=== PATIENT | female | born 1950 | race Caucasian/White ===

== ENCOUNTER 2018-04-26 15:27 | Observation (INO) ==
[2018-04-26] MEDS ORDERED: Insulin Regular, Human 100 UNIT/ML SQ ONE (15:30)
--- NOTE | 2018-04-26 15:32 | Emergency Department Note ---
Disposition Clinical Impression: Hyperglycemia Urinary tract infection Qualifiers: Urinary tract infection type: acute cystitis Hematuria presence: without hematuria Qualified Code(s): N30.00 - Acute cystitis without hematuria Disposition: Admitted As Inpatient Condition: Fair Time of Disposition: 16:31 General Adult HPI - General Chief complaint: ED Urogenital-Female Stated complaint: frequent urinations, not acting normal Time Seen by Provider: 04/26/18 15:29 Source: patient, family, EMS Mode of arrival: EMS Limitations: physical limitation Nursing Notes Reviewed: Yes Vital Signs Reviewed: Yes - History of Present Illness HPI Narrative: Patient presents by EMS with a history of dementia, elevated blood sugar and some increased urination. Family indicated she might be a little more confused than usual. She arrived with normal vital signs, IV established and had received a small fluid bolus. She indicates that she feels well and denies any physical complaints. She denies headache, visual changes, nausea or vomiting. She is chest pain, shortness of breath, cough. She is not having fevers, chills , weakness or dizziness. She denies abdominal pain, diarrhea or any urinary frequency, dysuria or urgency. Family was not present on her first arrival. Onset (ago): unknown Pain Scale: 0 Associated symptoms: Reports: confusion, loss of appetite. Denies: chest pain, cough, diaphoresis, fever/chills, headaches, malaise, nausea/vomiting, rash, seizure, shortness of breath, syncope, weakness Treatments Prior to Arrival: none - Related Data Home Medications Medication Instructions Recorded Confirmed Metformin [Glucophage] 1,000 mg PO BIDWM 04/05/15 04/26/18 Atorvastatin [Lipitor] 40 mg PO HS 11/10/16 04/26/18 Duloxetine HCl [Cymbalta] 60 mg PO DAILY 11/10/16 04/26/18 Memantine [Namenda] 10 mg PO HS 11/10/16 04/26/18 risperiDONE [Risperdal] 1 mg PO DAILY 11/10/16 04/26/18 Divalproex (12 HR) [Depakote (12 0 mg PO QID 03/23/18 04/26/18 HR)] Rivastigmine Patch [Exelon] 9.6 mg TD DAILY 03/23/18 04/26/18 Hydroxyurea [Hydrea] 500 mg PO DAILY 04/26/18 04/26/18 Magnesium Oxide [Magnesium] 400 mg PO BID 04/26/18 04/26/18 raNITIdine HCl [Zantac] 150 mg PO DAILY 04/26/18 04/26/18 Previous Rx's Medication Instructions Recorded Prochlorperazine Maleate 10 mg PO Q8HR PRN #90 tablet 01/26/18 [Compazine] Allergies Allergy/AdvReac Type Severity Reaction Status Date / Time Iodinated Contrast- Oral and Allergy Difficulty Verified 04/26/18 15:28 IV Dye Breathing [Iodinated Contrast Media - IV Dye] Penicillins Allergy See Verified 04/26/18 15:28 Comments aspirin [ASA] AdvReac Intermediate See Verified 04/26/18 15:28 Comments All systems ED: reviewed and negative except as stated. Past Medical History - Past Medical History Attestation: Yes The following information was validated with the patient. 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 Absent: scleral icterus, conjunctival injection - ENT ENT exam: normal exam, normal oropharynx, mucous membranes moist - Neck Neck exam: Present: normal inspection, full ROM, trachea midline. Absent: meningismus, lymphadenopathy - Chest Chest inspection: Present: normal inspection, symmetric chest wall rise - Respiratory Respiratory exam: Present: normal lung sounds bilaterally. Absent: respiratory distress, wheezes, prolonged expiratory phase - Cardiovascular Cardiovascular exam: Present: regular rate, normal rhythm, normal heart sounds. Absent: tachycardia - Abdominal Exam Abdominal exam: Present: soft, normal bowel sounds. Absent: distention, guarding, rebound, rigidity, Ruiz's sign, tenderness at McBurney's Point, pulsatile mass, hernia Abdominal tenderness: Present: LLQ, suprapubic, mild - Extremities Exam Extremities exam: Present: normal inspection, full ROM, normal capillary refill. Absent: tenderness, pedal edema - Expanded Lower Extremity Exam Neurovascular/Tendon exam: Present: normal capillary refill. Absent: motor deficit, sensory deficit, tendon deficit Gait: not tested/not observed - Neurological Exam Neurological exam: Present: alert. Absent: oriented X3, motor sensory deficit - Psychiatric Psychiatric exam: Present: normal affect, normal mood. Absent: agitated, anxious - Skin Skin exam: Present: warm, dry, intact, normal color. Absent: diaphoresis, pallor Course Course Narrative: 1600: Patient's and home health nurse arrived. The expresses concern that he is no longer able to take care of her at home and they are interested in admission and [place] [facility] placement. 1630: With the UTI, patient's continued with IV fluids and IV antibiotics. I discussed care with Dr. Dominguez's accepted this patient in observation with social service consult in the morning. Vital Signs Temperature 99.1 F 04/26/18 15:29 Pulse Rate 94 04/26/18 15:29 Respiratory Rate 18 04/26/18 15:29 Blood Pressure 137/107 04/26/18 15:29 O2 Sat by Pulse Oximetry 98 04/26/18 15:29 Temperature 98.3 F 04/26/18 18:58 Pulse Rate 91 04/26/18 18:58 Respiratory Rate 16 04/26/18 18:58 Blood Pressure 108/64 04/26/18 18:58 O2 Sat by Pulse Oximetry 99 04/26/18 18:58 Oxygen Delivery Oxygen Delivery Room Air Medical Decision Making - Medical Records Medical records reviewed: Yes I reviewed the patient's medical records. - Lab Data Lab results reviewed: Yes I reviewed the patient's lab results. Result diagrams: 04/26/18 15:30 04/26/18 15:30 Lab Results 04/26/18 04/26/18 04/26/18 Range/Units 15:00 15:30 15:30 WBC 9.0 (4.3-11.1) K/mcL RBC 2.17 L (3.82-4.97) M/mcL Hgb 9.4 L (11.5-15.4) g/dL Hct 27.8 L (35.3-44.9) % MCV 128.1 H (83.0-100.0) fL MCH 43.3 H (28.0-33.3) pg MCHC 33.8 (31.6-35.5) g/dL RDW 11.2 L (11.5-14.5) % Plt Count 213 (140-400) K/mcL MPV 10.5 (9.4-12.4) fL Immature Gran % 0.4 (0-4) % Seg Neutrophils % 59.5 % Lymphocytes % 28.1 % Monocytes % 11.5 % Eosinophils % 0.2 % Basophils % 0.3 % Neutrophils # 5.3 (1.6-8.9) K/mcL Lymphocytes # 2.5 (0.6-4.6) K/mcL Monocytes # 1.0 (0.0-1.3) K/mcL Eosinophils # 0.0 (0.0-0.6) K/mcL Basophils # 0.0 (0.0-0.2) K/mcL Toxic Granulation Present A (Not Present) Platelet Estimate Normal (Normal) Polychromasia 1+ A (Not Present) Anisocytosis 1+ A (Not Present) Macrocytosis Present A (Not Present) Sodium 136 (136-145) mEq/L Potassium 3.9 (3.5-5.1) mEq/L Chloride 101 (98-107) mEq/L Carbon Dioxide 28 (23-29) mEq/L BUN 11 (8-23) mg/dL Creatinine 0.71 (0.60-1.20) mg/dL Est GFR ( Amer) > 60 (> 60) Est GFR (Non-Af Amer) > 60 (> 60) BUN/Creatinine Ratio 15 (6-26) Glucose 377 H (70-105) mg/dL Calculated Osmolality 297 (280-300) Calcium 9.3 (8.6-10.3) mg/dL Beta-Hydroxybutyric Acd (0.02-0.27) mmol/L Urine Color (Yellow) Urine Clarity (Clear) Urine pH (5.0-8.0) pH Units Ur Specific [place] (1.010-1.025) Urine Protein (Neg-Trace) mg/dL Urine Glucose (UA) (Normal) mg/dL Urine Ketones (Negative) mg/dL Urine Blood (Negative) Urine Nitrite (Negative) Urine Bilirubin (Negative) Urine Urobilinogen (Normal) mg/dL Ur Leukocyte Esterase (Negative) Urine Microscopic RBC (0-3) per hpf Urine Microscopic WBC (0-3) per hpf Ur Squamous Epith Cells (None-Few) per lpf Urine Bacteria (None-Few) per hpf Ur Culture Indicated? (NO) Valproic Acid 14 L (50-100) mcg/mL 04/26/18 04/26/18 Range/Units 15:30 15:48 WBC (4.3-11.1) K/mcL RBC (3.82-4.97) M/mcL Hgb (11.5-15.4) g/dL Hct (35.3-44.9) % MCV (83.0-100.0) fL MCH (28.0-33.3) pg MCHC (31.6-35.5) g/dL RDW (11.5-14.5) % Plt Count (140-400) K/mcL MPV (9.4-12.4) fL Immature Gran % (0-4) % Seg Neutrophils % % Lymphocytes % % Monocytes % % Eosinophils % % Basophils % % Neutrophils # (1.6-8.9) K/mcL Lymphocytes # (0.6-4.6) K/mcL Monocytes # (0.0-1.3) K/mcL Eosinophils # (0.0-0.6) K/mcL Basophils # (0.0-0.2) K/mcL Toxic Granulation (Not Present) Platelet Estimate (Normal) Polychromasia (Not Present) Anisocytosis (Not Present) Macrocytosis (Not Present) Sodium (136-145) mEq/L Potassium (3.5-5.1) mEq/L Chloride (98-107) mEq/L Carbon Dioxide (23-29) mEq/L BUN (8-23) mg/dL Creatinine (0.60-1.20) mg/dL Est GFR ( Amer) (> 60) Est GFR (Non-Af Amer) (> 60) BUN/Creatinine Ratio (6-26) Glucose (70-105) mg/dL Calculated Osmolality (280-300) Calcium (8.6-10.3) mg/dL Beta-Hydroxybutyric Acd 0.20 (0.02-0.27) mmol/L Urine Color Yellow (Yellow) Urine Clarity Cloudy A (Clear) Urine pH 7.0 (5.0-8.0) pH Units Ur Specific [place] 1.015 (1.010-1.025) Urine Protein Negative (Neg-Trace) mg/dL Urine Glucose (UA) >=1000 H (Normal) mg/dL Urine Ketones Negative (Negative) mg/dL Urine Blood Trace-intact H (Negative) Urine Nitrite Negative (Negative) Urine Bilirubin Negative (Negative) Urine Urobilinogen Normal (Normal) mg/dL Ur Leukocyte Esterase Small H (Negative) Urine Microscopic RBC 0-3 (0-3) per hpf Urine Microscopic WBC 30-50 H (0-3) per hpf Ur Squamous Epith Cells Few (None-Few) per lpf Urine Bacteria Many H (None-Few) per hpf Ur Culture Indicated? YES A (NO) Valproic Acid (50-100) mcg/mL
[2018-04-26 15:41] LABS: Basophils % 0.3 %; Eosinophils % 0.2 %; Hematocrit 27.8 % (35.3-44.9); Hemoglobin 9.4 g/dL (11.5-15.4); Immature Granulocytes % 0.4 % (0-4); Lymphocytes # 2.5 K/mcL (0.6-4.6); Lymphocytes % 28.1 %; Mean Corpuscular HGB Conc 33.8 g/dL (31.6-35.5); Mean Corpuscular Hemoglobin 43.3 pg (28.0-33.3); Mean Corpuscular Volume 128.1 fL (83.0-100.0); Mean Platelet Volume 10.5 fL (9.4-12.4); Monocytes % 11.5 %; Neutrophils # 5.3 K/mcL (1.6-8.9); Platelet Count 213 K/mcL (140-400); Red Blood Count 2.17 M/mcL (3.82-4.97); Red Cell Distribution Width 11.2 % (11.5-14.5); Segmented Neutrophils % 59.5 %
[2018-04-26 15:53] LABS: Bilirubin,Urine Negative (Negative); Blood,Urine Trace-intact (Negative); Clarity,Urine Cloudy (Clear); Color,Urine Yellow (Yellow); Glucose,Urine (UA) >=1000 mg/dL (Normal); Ketones,Urine Negative (Negative); Leukocyte Esterase,Urine Small (Negative); Nitrite,Urine Negative (Negative); Protein,Urine Negative (Neg-Trace); Specific Gravity,Urine 1.015 (1.010-1.025); Urobilinogen,Urine Normal (Normal)
[2018-04-26 16:00] LABS: RBC,Urine 0-3 per hpf (0-3); Squamous Epithelial Cell,Urine Few per lpf (None-Few); WBC,Urine 30-50 per hpf (0-3)
[2018-04-26 16:01] LABS: Bacteria,Urine Many per hpf (None-Few)
[2018-04-26 16:01] LABS: BUN/Creatinine Ratio 15 (6-26); Blood Urea Nitrogen 11 mg/dL (8-23); Calcium 9.3 mg/dL (8.6-10.3); Carbon Dioxide 28 mEq/L (23-29); Chloride 101 mEq/L (98-107); Glucose 377 mg/dL (70-105); Osmolality,Calculated 297 (280-300); Potassium 3.9 mEq/L (3.5-5.1); Sodium 136 mEq/L (136-145); eGFR For Non-African Americans > 60 (> 60)
[2018-04-26 16:21] LABS: Anisocytosis 1+ (Not Present); Macrocytosis Present (Not Present); Polychromasia 1+ (Not Present)
[2018-04-26 16:22] LABS: Platelet Estimate Normal (Normal); Toxic Granulation Present (Not Present)
[2018-04-26] MEDS ORDERED: cefTRIAXone 2,000 MG in 0.9 % Sodium Chloride Mini Bag 100 ML IVPB ONE ×2 (16:22→16:38)
[2018-04-26] MEDS ORDERED: Naloxone 0.4 MG/ML INJ IVP PRN (16:38)
[2018-04-26] MEDS ORDERED: *HR* Dextrose 50 % in Water (Syg) 50 ML SYRINGE IVP PRN (16:38)
[2018-04-26] MEDS ORDERED: D5% in Water 1,000 ML IVC PRN (16:38)
[2018-04-26] MEDS ORDERED: Dextrose Gel 15 GM/37.5 ML TUBE PO PRN ×2 (16:38)
[2018-04-26] MEDS: Insulin LISPRO 300 UNITS/3 ML VIAL SQ SCH (17:23)
[2018-04-26] MEDS: 0.9 % Sodium Chloride 1,000 ML IVC SCH (20:31)
[2018-04-27] MEDS: 0.9 % Sodium Chloride 1,000 ML IVC SCH (04:40)
[2018-04-27] MEDS: Insulin LISPRO 300 UNITS/3 ML VIAL SQ SCH ×3 (08:14→17:25)
[2018-04-27] MEDS ORDERED: Rivastigmine Patch 9.5 MG PATCH.TD24 TD SCH (09:00)
[2018-04-27] MEDS ORDERED: Acetaminophen 325 MG TABLET PO PRN (09:09)
[2018-04-27] MEDS: Rivastigmine Patch 9.5 MG PATCH.TD24 TD SCH (09:32)
[2018-04-27] MEDS: risperiDONE 1 MG TABLET PO SCH (09:33)
--- NOTE | 2018-04-27 10:52 | Internal Med History&Physical ---
Date of Encounter: 04/27/18 Time of Encounter: 10:15 Assessment and Plan (1) Urinary tract infection Current visit: Yes Status: Acute She was started on Rocephin empirically in emergency room. Will continue with addition of lactobacillus. Qualifiers: Urinary tract infection type: acute cystitis Hematuria presence: without hematuria Qualified Code(s): N30.00 - Acute cystitis without hematuria (2) Myeloproliferative disorder Current visit: Yes Status: Chronic As per oncologist. (3) DM type 2 (diabetes mellitus, type 2) Current visit: Yes Status: Chronic Check hemoglobin A1c. Continue Glucophage and do Accu-Cheks with SSI. Qualifiers: Diabetes mellitus fpc insulin use: without fpc use Diabetes mellitus complication status: without complication Qualified Code(s): E11.9 - Type 2 diabetes mellitus without complications (4) Hypomagnesemia Current visit: Yes Status: Acute History of hypomagnesemia. She is on supplemental magnesium oxide at home. Check magnesium level. (5) Dementia Current visit: Yes Status: Chronic Continue Exelon patch and Namenda. Qualifiers: Dementia type: unspecified type Dementia behavioral disturbance: without behavioral disturbance Qualified Code(s): F03.90 - Unspecified dementia without behavioral disturbance Internal Medicine - H&P: HPI Chief complaint: Increased confusion Admitted From: Emergency Dept Plans for Post Hospital Care: Home History of present illness: Ms. Kamara is a 67 year old female was brought to emergency room after family and home health staff felt she was more confused than her baseline confusion. There was concern for possible UTI. She was evaluated in emergency room and found to have probable UTI, hyperglycemia, and anemia. She was admitted to [facility] floor for ongoing care needs. She has advanced dementia and cannot supply significant history. She was diagnosed with dementia approximately 2013 and has been seen by neurologists at [place] and [place]. She has history of seizures in the past but has not had a recent seizure. There are no documented large distribution strokes. Past Med Surg Social Fam HX - Past Medical History Medical history: asthma, COPD, CVA, dementia, diabetes, other (Myelodysplastic syndrome) Additional medical history: myelodysplastic syndrome Psychiatric history: depression - Past Surgical History Surgical History: no surgical history - Social History Smoking Status: Former smoker Smokeless Tobacco Status: No Alcohol use: none Drug use: none Internal Medicine - H&P: Meds Metformin [Glucophage] 1,000 mg PO BIDWM 04/05/15 [History] Atorvastatin [Lipitor] 40 mg PO HS 11/10/16 [History] Duloxetine HCl [Cymbalta] 60 mg PO DAILY 11/10/16 [History] Memantine [Namenda] 10 mg PO HS 11/10/16 [History] risperiDONE [Risperdal] 1 mg PO DAILY 11/10/16 [History] Prochlorperazine Maleate [Compazine] 10 mg PO Q8HR PRN #90 tablet 01/26/18 [Rx] Divalproex (12 HR) [Depakote (12 HR)] 0 mg PO QID 03/23/18 [History] Rivastigmine Patch [Exelon] 9.6 mg TD DAILY 03/23/18 [History] Hydroxyurea [Hydrea] 500 mg PO DAILY 04/26/18 [History] Magnesium Oxide [Magnesium] 400 mg PO BID 04/26/18 [History] raNITIdine HCl [Zantac] 150 mg PO DAILY 04/26/18 [History] 3 Allergy/AdvReac Type Severity Reaction Status Date / Time Iodinated Contrast- Oral and Allergy Difficulty Verified 04/26/18 15:28 IV Dye Breathing [Iodinated Contrast Media - IV Dye] Penicillins Allergy See Verified 04/26/18 15:28 Comments aspirin [ASA] AdvReac Intermediate See Verified 04/26/18 15:28 Comments All Systems PM: A 10-system review of systems was performed and is negative for pertinent findings except as documented above in the HPI. Review of systems: Unobtainable from the patient. Following was obtained from the patient's and home health nursing staff Gen.: Her weight has decreased approximately 10 pounds in the past month Cardiovascular: She has history of hypertension but no longer requires medication. There is no history of [place] heart failure DVT or pulmonary embolus. Respiratory: She smoked for approximately 10 years in early adulthood. She has no documented chronic lung disease GI: No known disorders of liver gallbladder or exocrine pancreas : No history of hematuria dysuria or kidney stones Neurologic: As per history of present illness Endocrine: She was diagnosed with DM 2 approximately age 45. There is no known thyroid disease or hyperlipidemia Hematology/oncology: She has been diagnosed with myeloproliferative disorder. She saw an oncologist February 2018. She is on Hydrea for thrombocytosis. She has chronic anemia. Psychiatric: She has history of depression. The home health nurse reported there other mental health diagnoses - Constitutional Vitals: Temp Pulse Resp BP Pulse Ox 97.8 F 96 16 125/58 100 04/27/18 06:44 04/27/18 06:44 04/27/18 06:44 04/27/18 06:44 04/27/18 06:44 Exam: Gen.: She is a well-developed well-nourished female resting comfortably in bed who appears in no acute distress. HEENT: Head is atraumatic and normal cephalic. Eyes: EOMI. There is no scleral icterus. Mouth: Mucosa is moist. Neck: Supple and nontender. There is no thyromegaly or adenopathy noted. Heart: Regular without murmurs gallops or ectopics Lungs: No wheezes or crackles are heard. Abdomen: Soft and nontender. No masses or guarding are noted. Extremities: She is wearing GERBER hose on her legs bilaterally which I did not remove. There is no cyanosis edema or clubbing noted. Dorsalis pedis and posttibial pulses are palpable through the GERBER hose. Neurologic: Mental status: She is alert and awake. She is a poor historian and does not know her age, date of , husbands name, or last name. She follows some but not all commands. Cranial nerves: Smile is symmetric. Forehead wrinkles bilaterally. Tongue protrudes midline. EOMI. Motor: There is no pronator drift. She has cogwheeling and rigidity on passive range of motion. Cerebellar: Finger to nose is intact bilaterally. Skin: Warm and dry Internal Med - H&P Results - Labs CBC & Chem 7: 04/26/18 15:30 04/26/18 15:30 - VTE Documentation of Mechanical Device: Graduated compression elastic hosiery
[2018-04-27] MEDS ORDERED: cefTRIAXone 2,000 MG in Water for inj. (sterile) 20 ML 20 ML IVPB SCH (16:00)
[2018-04-27] MEDS: *HR* Metformin 500 MG TABLET PO SCH (17:26)
[2018-04-27] MEDS: Lactobacillus 1 EACH CAP.SPRINK PO SCH (20:31)
[2018-04-27] MEDS: ALPRAZolam 0.5 MG TABLET PO PRN (20:52)
[2018-04-27 22:00] VITALS: BP 107/49
[2018-04-28] MEDS: ALPRAZolam 0.5 MG TABLET PO PRN (01:22)
[2018-04-28 07:01] LABS: Basophils % 0.4 %; Eosinophils # 0.1 K/mcL (0.0-0.6); Eosinophils % 1.1 %; Hematocrit 26.2 % (35.3-44.9); Hemoglobin 8.8 g/dL (11.5-15.4); Immature Granulocytes % 0.4 % (0-4); Lymphocytes # 4.1 K/mcL (0.6-4.6); Mean Corpuscular HGB Conc 33.6 g/dL (31.6-35.5); Mean Corpuscular Hemoglobin 42.3 pg (28.0-33.3); Mean Platelet Volume 10.3 fL (9.4-12.4); Monocytes # 0.6 K/mcL (0.0-1.3); Monocytes % 7.9 %; Neutrophils # 2.6 K/mcL (1.6-8.9); Platelet Count 213 K/mcL (140-400); Red Blood Count 2.08 M/mcL (3.82-4.97); Red Cell Distribution Width 10.6 % (11.5-14.5); Segmented Neutrophils % 35.2 %
[2018-04-28 08:41] LABS: Macrocytosis Present (Not Present)
--- NOTE | 2018-04-28 09:35 | Discharge Summary ---
Orders not resulted at time of discharge: Pending orders 04/28/18 06:36 Hgb A1C AM 0400 Date of Encounter: 04/28/18 Time of Encounter: 09:15 - Discharge Diagnosis (1) Urinary tract infection Priority: Primary Status: Acute Qualifiers: Urinary tract infection type: acute cystitis Hematuria presence: without hematuria Qualified Code(s): N30.00 - Acute cystitis without hematuria (2) Myeloproliferative disorder Priority: Secondary Status: Chronic (3) DM type 2 (diabetes mellitus, type 2) Priority: Secondary Status: Chronic Qualifiers: Diabetes mellitus long term care social worker insulin use: without alf use Diabetes mellitus complication status: without complication Qualified Code(s): E11.9 - Type 2 diabetes mellitus without complications (4) Hypomagnesemia Priority: Secondary Status: Acute (5) Dementia Priority: Secondary Status: Chronic Qualifiers: Dementia type: unspecified type Dementia behavioral disturbance: without behavioral disturbance Qualified Code(s): F03.90 - Unspecified dementia without behavioral disturbance Hospital course: Ms. Kamara is a 67 year old female who was brought to emergency room after family and home health staff felt she was more confused than her baseline confusion. There was concern for possible UTI. She was evaluated in emergency room and found to have probable UTI, hyperglycemia, and anemia. She was admitted to [facility] floor for ongoing care needs. Initial orders were written by the emergency room physician. I saw her on April 27 and performed the history and physical. She was started empirically on Rocephin for UTI. Lactobacillus was added. Urine culture showed gram- negative rods on preliminary report available April 28. She will be discharged on Ceftin twice a day for 3 days with lactobacillus. Antibiotic adjustment can be made if needed depending on final culture and sensitivity report. Magnesium level returned normal at 1.6. PT and OT evaluations were ordered. The patient could not comprehend therapists discussions because of dementia. She had occasional periods of agitation and restlessness. Xanax 0.5 mg twice a day was scheduled upon discharge with further dose adjustments as needed. Social service consult was made. Arrangements were complete for patient to be discharged to [facility] on April 28. - Time Spent with Patient Total time spent providing and/or coordinating discharge services: - Discharge Medications Prescriptions: Cefuroxime PO [Ceftin] 500 mg PO Q12HR 3 Days tablet ALPRAZolam [Xanax 0.5 MG Tablet] 0.5 mg PO BID 30 Days #60 tablet Home Medications: Metformin [Glucophage] 1,000 mg PO BIDWM 04/05/15 [History] Atorvastatin [Lipitor] 40 mg PO HS 11/10/16 [History] Duloxetine HCl [Cymbalta] 60 mg PO DAILY 11/10/16 [History] Memantine [Namenda] 10 mg PO HS 11/10/16 [History] risperiDONE [Risperdal] 1 mg PO DAILY 11/10/16 [History] Prochlorperazine Maleate [Compazine] 10 mg PO Q8HR PRN #90 tablet 01/26/18 [Rx] Divalproex (12 HR) [Depakote (12 HR)] 0 mg PO QID 03/23/18 [History] Hydroxyurea [Hydrea] 500 mg PO DAILY 04/26/18 [History] Magnesium Oxide [Magnesium] 400 mg PO BID 04/26/18 [History] raNITIdine HCl [Zantac] 150 mg PO DAILY 04/26/18 [History] ALPRAZolam [Xanax 0.5 MG Tablet] 0.5 mg PO BID 30 Days #60 tablet 04/28/18 [Rx] Cefuroxime PO [Ceftin] 500 mg PO Q12HR 3 Days tablet 04/28/18 [Rx] Lactobacillus [Culturelle] 1 each PO BID 3 Days cap.sprink 04/28/18 [Rx] Rivastigmine Patch [Exelon] 9.5 mg TD DAILY #0 04/28/18 [Rx] Allergies/Adverse Reactions: 3 Allergy/AdvReac Type Severity Reaction Status Date / Time Iodinated Contrast- Oral and Allergy Difficulty Verified 04/26/18 15:28 IV Dye Breathing [Iodinated Contrast Media - IV Dye] Penicillins Allergy See Verified 04/26/18 15:28 Comments aspirin [ASA] AdvReac Intermediate See Verified 04/26/18 15:28 Comments Date of admission: 04/26/18 16:33 Primary care physician: Holly Green CNP Consults: 04/26/18 18:37 Consult to Occupational Therapy [CONS] Routine Comment: Evaluate, develop and implement POC Reason for Consult: weakness Does patient have active BEDREST order?: No Is patient medically & hemodynamically stable?: Yes - Constitutional Vitals: Temp Pulse Resp BP Pulse Ox 98.0 F 87 16 107/49 97 04/27/18 21:59 04/27/18 21:59 04/27/18 21:59 04/27/18 21:59 04/27/18 21:59 - Patient Status Disposition: Transfer SNF Condition: Fair - Discharge Instructions - Diet and Activity Activity: resume usual activities as tolerated Diet: diabetic diet - VTE Documentation of Mechanical Device: Graduated compression elastic hosiery
[2018-04-28 09:45] LABS: Estimated Average Glucose 154 mg/dl
--- NOTE | 2018-04-28 09:46 | Physician Discharge Referral ---
ExtendedCare Referral Info Transfer To: [facility] Provider in Charge: Alberto Provider in Charge after Transfer: PCP (Alberto) - Diagnosis (1) Urinary tract infection Priority: Primary Status: Acute (2) Myeloproliferative disorder Priority: Secondary Status: Chronic (3) DM type 2 (diabetes mellitus, type 2) Priority: Secondary Status: Chronic (4) Hypomagnesemia Priority: Secondary Status: Acute (5) Dementia Priority: Secondary Status: Chronic Prognosis: Fair Aware of Diagnosis: Family Aware of Prognosis: Family - Transfer Medications Prescriptions: Cefuroxime PO [Ceftin] 500 mg PO Q12HR 3 Days tablet ALPRAZolam [Xanax 0.5 MG Tablet] 0.5 mg PO BID 30 Days #60 tablet Home Medications: Metformin [Glucophage] 1,000 mg PO BIDWM 04/05/15 [History] Atorvastatin [Lipitor] 40 mg PO HS 11/10/16 [History] Duloxetine HCl [Cymbalta] 60 mg PO DAILY 11/10/16 [History] Memantine [Namenda] 10 mg PO HS 11/10/16 [History] risperiDONE [Risperdal] 1 mg PO DAILY 11/10/16 [History] Prochlorperazine Maleate [Compazine] 10 mg PO Q8HR PRN #90 tablet 01/26/18 [Rx] Divalproex (12 HR) [Depakote (12 HR)] 0 mg PO QID 03/23/18 [History] Hydroxyurea [Hydrea] 500 mg PO DAILY 04/26/18 [History] Magnesium Oxide [Magnesium] 400 mg PO BID 04/26/18 [History] raNITIdine HCl [Zantac] 150 mg PO DAILY 04/26/18 [History] ALPRAZolam [Xanax 0.5 MG Tablet] 0.5 mg PO BID 30 Days #60 tablet 04/28/18 [Rx] Cefuroxime PO [Ceftin] 500 mg PO Q12HR 3 Days tablet 04/28/18 [Rx] Lactobacillus [Culturelle] 1 each PO BID 3 Days cap.sprink 04/28/18 [Rx] Rivastigmine Patch [Exelon] 9.5 mg TD DAILY #0 04/28/18 [Rx] Allergies/Adverse Reactions: 3 Allergy/AdvReac Type Severity Reaction Status Date / Time Iodinated Contrast- Oral and Allergy Difficulty Verified 04/26/18 15:28 IV Dye Breathing [Iodinated Contrast Media - IV Dye] Penicillins Allergy See Verified 04/26/18 15:28 Comments aspirin [ASA] AdvReac Intermediate See Verified 04/26/18 15:28 Comments - Respiratory Orders Smoking Cessation: Smoking cessation has been advised. For more information, call the [place] Tobacco Quit Line at 7-674-NGOU-NOW. - Rehabiliation Orders Rehab Potential: Poor Rehab Orders: Evaluation for Physical Therapy, Evaluation for Occupational Therapy - Diet Orders No Concentrated Sweets CERTIFICATION: I certify that the transfer of the above named patient to an Extended Care Facility is necessary for the continuing treatment of the diagnosis listed. The above information is true and accurate reflection of patient's current condition. Confidential - Redisclosure prohibited without a patient's written consent.
[2018-04-28] MEDS: Lactobacillus 1 EACH CAP.SPRINK PO SCH (09:57)
[2018-04-28] MEDS: risperiDONE 1 MG TABLET PO SCH (09:59)
[2018-04-28] MEDS: *HR* Metformin 500 MG TABLET PO SCH (09:59)
[2018-04-28] MEDS: Rivastigmine Patch 9.5 MG PATCH.TD24 TD SCH (10:03)
== END 2018-04-28 13:20 ==
LOC: EMEROOPIK 15:27 → INPPIK 15:27
PROVIDERS: ADMIT Internal Medicine; ATTEND Internal Medicine